=== PATIENT | female | born 2000 | race Caucasian/White ===

== ENCOUNTER 2018-01-29 09:17 | Emergency (ER) | payer BC, MEDICAID, OTHER ==
[2018-01-29 09:45] VITALS: BP 125/78
--- NOTE | 2018-01-29 09:59 | UC ---
Throat Pain/Nasal Karan HPI - HPI Summary HPI Summary: 17 year old female presents with mother reporting 5 day history of sore throat. Associated with nasal congestion and occasional non-productive cough. Denies fever, chills, headache, ear pain, dysphagia, chest pain, SOB, abdominal pain, nausea, or vomiting. - History of Current Complaint Chief Complaint: UCRespiratory Stated Complaint: EARS,THROAT,ACHY Time Seen by Provider: 01/29/18 09:28 Hx Obtained From: Patient Hx Last Menstrual Period: 01/17 ?: No Onset/Duration: Gradual Onset, Lasting Days - 5 Severity: Moderate Pain Intensity: 9 Cough: Nonproductive Associated Signs & Symptoms: Positive: Nasal Discharge. Negative: Dysphagia, Wheezing, Hoarseness, Sinus Discomfort, Fever, Vomiting - Allergies/Home Medications Allergies/Adverse Reactions: Allergies Allergy/AdvReac Type Severity Reaction Status Date / Time apricot Allergy Unknown Verified 01/29/18 09:47 Reaction Details sulfamethoxazole Allergy thrush Verified 01/29/18 09:47 [From Bactrim] trimethoprim [From Bactrim] Allergy thrush Verified 01/29/18 09:47 Home Medications: Home Medications Acetaminophen TAB* [Tylenol TAB*] 1,000 mg PO SEE INSTRUCTIONS PRN 01/29/18 [ History Confirmed 01/29/18] Dm/PE/Acetaminophen/Doxylamine [Vicks Nyquil Severe Cold-Flu] 236 ml PO ONCE PRN 01/29/18 [History Confirmed 01/29/18] O C 1 tab PO QPM 01/29/18 [History Confirmed 01/29/18] PMH/Surg Hx/FS Hx/Imm Hx Previously Healthy: Yes - Surgical History Surgical History: Yes Surgery Procedure, Year, and Place: cochlear implant, tonsils, Right eye, left ACL; upper GI endoscopy - Family History Known Family History: Positive: Non-Contributory - Social History Occupation: Student Lives: With Family Alcohol Use: Occasionally Substance Use Type: None Smoking Status (MU): Never Smoked Tobacco Review of Systems All Other Systems Reviewed And Are Negative: Yes Constitutional: Negative: Fever, Chills Skin: Negative: Rash Eyes: Negative: Drainage, Eye Redness ENT: Positive: Sore Throat, Nasal Discharge, Sinus Congestion. Negative: Ear Ache, Sinus Pain/Tenderness Respiratory: Positive: Cough. Negative: Shortness Of Breath Cardiovascular: Negative: Palpitations, Chest Pain Gastrointestinal: Negative: Abdominal Pain, Vomiting, Nausea Is Patient Immunocompromised?: No Physical Exam - Summary Physical Exam Summary: GENERAL APPEARANCE: Well developed, well nourished, alert and cooperative, and appears to be in no acute distress. EYES: Conjunctiva clear. No discharge. EARS: External auditory canals and tympanic membranes clear, hearing grossly intact. NOSE: No nasal discharge. THROAT: Oral cavity normal. Teeth and gingiva in good general condition. Mild pharyngeal erythema without exudate or lesions. Tonsils surgically absent. NECK: Neck supple, non-tender without lymphadenopathy. CARDIAC: Normal S1 and S2. No S3, S4 or murmurs. Rhythm is regular. There is no peripheral edema, cyanosis or pallor. Extremities are warm and well perfused. Capillary refill is less than 2 seconds. LUNGS: Clear to auscultation and percussion without rales, rhonchi, wheezing or diminished breath sounds. ABDOMEN: Positive bowel sounds. Soft, nondistended, nontender. No guarding or rebound. No masses or hepatosplenomegally. SKIN: Skin normal color, texture and turgor with no lesions or eruptions. Triage Information Reviewed: Yes Vital Signs: Initial Vital Signs Temp 97 F 01/29/18 09:35 Pulse 104 01/29/18 09:35 Resp 18 01/29/18 09:35 BP 125/78 01/29/18 09:35 Pulse Ox 9 01/29/18 09:35 Vital Signs Reviewed: Yes Diagnostics - Laboratory Diagnostic Studies Completed/Ordered: Rapid strep negative. Throat Pain/Nasal Course/Dx - Course Course Of Treatment: 17 year old female presents with mother reporting 5 day history of sore throat. Associated with nasal congestion and occasional non- productive cough. Denies fever, chills, headache, ear pain, dysphagia, chest pain, SOB, abdominal pain, nausea, or vomiting. Afebrile. VSS. Exam revealed some mild nasal congestion and mild pharyngeal erythema without tonsilar swelling or exudate. Rapid strep negative. Recommend symptomatic treatment for viral URI. She is to follow up with PCP in 7 days if symptoms persist. Warning symptoms reviewed with patient. Verbalizes understanding and agrees with POC. - Differential Dx/Diagnosis Differential Diagnosis/HQI/PQRI: Influenza, Mononucleosis, Pharyngitis, Tonsillitis, URI Provider Diagnosis: Viral upper respiratory infection Discharge - Sign-Out/Discharge Documenting (check all that apply): Patient Departure All imaging exams completed and their final reports reviewed: No Studies - Discharge Plan Condition: Stable Disposition: HOME Patient Education Materials: Upper Respiratory Infection (ED) Referrals: Araseli Donahue [employer] [Primary Care Provider] - 5 Days (If symptoms do not improve.) Additional Instructions: Your history and exam are consistent with a viral upper respiratory infection. Viral infections do not respond to antibiotics and are limited to the treatment of symptoms. Viral infections typically run their course in 7-10 days. Drink plenty of fluids to avoid dehydration especially if you are running any fever. Use a saline rinse kit such as Neti Pot or NeilMed at least twice a day to help thin secretions and promote drainage of the sinuses. Use fluticasone (Flonase) nasal spray 2 sprays each nostril once daily. Use an over the counter decongestant such as Sudafed according to directions to help with the congestion. Take over the counter acetaminophen (Tylenol) or ibuprofen (Advil, Motrin) according to directions as needed for pain or fever. Use salt water gargles several times a day if you have a sore throat. You may also use Chloraseptic spray or Cepacol lonzenges according to directions which contain a numbing medication and can provide some temporary relief from your sore throat. Follow up with your primary care provider in 5 days if symptoms persist. Seek immediate medical attention in the emergency room if you have fever greater than 100.5 F despite taking acetaminophen or ibuprofen, have chest pain , difficulty breathing, are unable to swallow, or have any worsening of symptoms. - Billing Disposition and Condition Condition: STABLE Disposition: Home
== END 2018-01-29 10:14 | disposition home or self-care (01) ==
LOC: UCCORT 09:17
DX: Z88.1 Allergy status to other antibiotic agents (principal); J06.9 Acute upper respiratory infection, unspecified
CPT/HCPCS: 87651; 99201; G0463